=== PATIENT | female | born 1985 | race African-American/Black ===

== ENCOUNTER 2016-05-12 20:05 | Emergency (ER) | payer BC, MEDICAID ==
--- NOTE | 2016-05-12 20:17 | ER Document Report ---
ED Medical Screen (RME) - General Stated Complaint: HEADACHE,BODY ACHES Notes: Patient is a 30-year-old female presents emergency department symptom onset Monday. Cough, fever, chills, body aches Did not receive a flu vaccine. I have greeted and performed a rapid initial assessment of this patient. A comprehensive ED assessment and evaluation of the patient, analysis of test results and completion of the medical decision making process will be conducted by additional ED providers. TRAVEL OUTSIDE OF THE U.S. IN LAST 30 DAYS: No - Related Data Allergies/Adverse Reactions: No Known Allergies Allergy (Verified 05/12/16 20:14) Past Medical History - Past Medical History Cardiac Medical History: Reports: Hx Hypertension Denies: Hx Coronary Artery Disease, Hx Heart Attack, Hx Hypercholesterolemia , Hx Heart Murmur Pulmonary Medical History: Denies: Hx Asthma, Hx Bronchitis, Hx COPD, Hx Pneumonia Neurological Medical History: Denies: Hx Cerebrovascular Accident, Hx Seizures Renal/ Medical History: Denies: Hx Ovarian Cysts, Hx Pelvic Inflammatory Disease Malignancy Medical History: Denies: Hx Breast Cancer, Hx Cervical Cancer, Hx Ovarian Cancer GI Medical History: Denies: Hx Gastroesophageal Reflux Disease, Hx Hiatal Hernia , Hx Ulcer Musculoskeltal Medical History: Denies Hx Arthritis Infectious Medical History: Denies: Hx HIV Past Surgical History: Reports: Hx Cholecystectomy, Hx Tubal Ligation - Immunizations Hx Diphtheria, Pertussis, Tetanus Vaccination: Yes
[2016-05-12] MEDS ORDERED: HYDROCODONE/ACETAMINOPHEN 5-325 MG TABLET PO ONE (21:57)
[2016-05-12] MEDS ORDERED: KETOROLAC TROMETHAMINE 60 MG/2 ML SDV IM ONE (21:57)
--- NOTE | 2016-05-12 22:05 | ER Document Report ---
ED Flu Like - General Chief Complaint: Flu Symptoms Stated Complaint: HEADACHE,BODY ACHES Time seen by provider: 21:50 Mode of Arrival: Ambulatory Information source: Patient TRAVEL OUTSIDE OF THE U.S. IN LAST 30 DAYS: No - HPI Onset: Yesterday Quality of pain: Achy Severity: Moderate Associated symptoms: Body/muscle aches, Chills, Nonproductive cough, Fever, Headache, Sore throat, Sweating Notes: Patient states that she has been having body aches, hot and cold chills, cough, sore throat since yesterday. She states that she has had some nausea and vomited one time yesterday. She denies any abdominal pain. She denies any difficulty breathing. She complains of some mild intermittent headaches. No blurred vision. No numbness tingling or weakness. No rash. She denies any other complaints. - Related Data Allergies/Adverse Reactions: No Known Allergies Allergy (Verified 05/12/16 20:14) Past Medical History - Social History Smoking Status: Unknown if Ever Smoked Family History: Reviewed & Not Pertinent Patient has suicidal ideation: No Patient has homicidal ideation: No - Past Medical History Cardiac Medical History: Reports: Hx Hypertension Denies: Hx Coronary Artery Disease, Hx Heart Attack, Hx Hypercholesterolemia , Hx Heart Murmur Pulmonary Medical History: Denies: Hx Asthma, Hx Bronchitis, Hx COPD, Hx Pneumonia Neurological Medical History: Denies: Hx Cerebrovascular Accident, Hx Seizures Renal/ Medical History: Denies: Hx Ovarian Cysts, Hx Peritoneal Dialysis, Hx Pelvic Inflammatory Disease Malignancy Medical History: Denies: Hx Breast Cancer, Hx Cervical Cancer, Hx Ovarian Cancer GI Medical History: Denies: Hx Gastroesophageal Reflux Disease, Hx Hiatal Hernia , Hx Ulcer Musculoskeltal Medical History: Denies Hx Arthritis Infectious Medical History: Denies: Hx HIV Past Surgical History: Reports: Hx Cholecystectomy, Hx Tubal Ligation - Immunizations Hx Diphtheria, Pertussis, Tetanus Vaccination: Yes Review of Systems - Review of Systems -: Yes All other systems reviewed and negative Physical Exam - Vital signs Vitals: Temp Pulse Resp BP Pulse Ox 98.2 F 85 16 146/102 H 96 05/12/16 20:14 05/12/16 20:14 05/12/16 20:14 05/12/16 20:14 05/12/16 20:14 Interpretation: Normal - General General appearance: Appears well, Alert - HEENT Head: Normocephalic, Atraumatic Eyes: Normal Conjunctiva: Normal Pupils: PERRL Ears: Normal External canal: Normal Tympanic membrane: Normal Nasal: Clear rhinorrhea Mouth/Lips: Normal Pharynx: Normal. No: Erythema, Exudate, Peritonsillar abscess, Uvular edema Neck: Normal. No: Anterior cervical chain, Meningismus - Respiratory Respiratory status: No respiratory distress Chest status: Nontender Breath sounds: Normal. No: Rhonchi, Stridor, Wheezing Chest palpation: Normal - Cardiovascular Rhythm: Regular Heart sounds: Normal auscultation Murmur: No - Extremities General upper extremity: Normal inspection, Nontender, Normal color, Normal ROM , Normal temperature General lower extremity: Normal inspection, Nontender, Normal color, Normal ROM , Normal temperature, Normal weight bearing. No: Gerard's sign - Neurological Neuro grossly intact: Yes Cognition: Normal Orientation: AAOx4 Martinez Coma Scale Eye Opening: Spontaneous Martinez Coma Scale Verbal: Oriented Martinez Coma Scale Motor: Obeys Commands [place] Coma Scale Total: 15 Speech: Normal Motor strength normal: LUE, RUE, LLE, RLE Sensory: Normal - Psychological Associated symptoms: Normal affect, Normal mood - Skin Skin Temperature: Warm Skin Moisture: Dry Skin Color: Normal Course - Re-evaluation Re-evalutation: 05/12/16 22:04 Patient is nontoxic. Stable vitals. The patient said have a positive influenza B. Since her symptoms started yesterday, I offered a prescription of Tamiflu. The patient is not a high risk patient. She does not have insurance, I explained the cost of the medication and she declined it at this time. I will discharge her home with symptomatic treatment with NSAIDs and [place]. Follow-up if not better in 3-5 days, sooner if getting worse. The patient is noted to have elevated blood pressure during today's emergency department visit. The patient was informed of this finding. The patient was instructed that this may be related to pre-hypertension and requires further evaluation with a primary care provider. The patient has no hypertensive symptoms at this time. - Vital Signs Vital signs: Temp Pulse Resp BP Pulse Ox 98.2 F 85 16 146/102 H 96 05/12/16 20:14 05/12/16 20:14 05/12/16 20:14 05/12/16 20:14 05/12/16 20:14 Discharge - Discharge Clinical Impression: Influenza Condition: Stable Disposition: HOME, SELF-CARE Instructions: Influenza ([facility]) [id number] Additional Instructions: Take medications as prescribed. Drink plenty of fluids. Follow-up if not better in 3-5 days, sooner if getting worse. Your blood pressure was elevated during today's visit. Have this rechecked with your doctor. Prescriptions: Hydrocodone Bit/Homatropine [Hycodan Syrup 5-1.5 mg/5 ml Ud Cup] 5 ml PO Q4HP PRN #120 ml PRN Reason: Naproxen Sodium 550 mg PO BID PRN #20 tablet PRN Reason: Forms: Elevated Blood Pressure, Parent Work Note
[2016-05-12 22:21] VITALS: BP 142/96
== END 2016-05-12 22:20 | disposition home or self-care (01) ==
LOC: ER 20:05
DX: J11.1 Influenza due to unidentified influenza virus with other respiratory manifestations (principal); R51 Headache; R52 Pain, unspecified; R05 Cough; J02.9 Acute pharyngitis, unspecified
CPT/HCPCS: 99283; 96372; 87804; J1885

== ENCOUNTER 2017-06-07 16:16 | Emergency (ER) | payer SELFPAY ==
[2017-06-07 16:32] VITALS: BP 136/95
--- NOTE | 2017-06-07 17:34 | ER Document Report ---
HPI - HPI Patient complains to provider of: Lump to right lower jaw Onset: Other - 1 month Onset/Duration: Persistent Quality of pain: Achy Pain Level: 1 Context: Patient complains of tender lump to her right lower for the past month. Patient additionally complains of dental pain. Patient denies any fever. Associated Symptoms: Other - Dental pain. denies: Fever Exacerbated by: Denies Relieved by: Denies Similar symptoms previously: No Recently seen / treated by doctor: No - ROS ROS below otherwise negative: Yes Systems Reviewed and Negative: Yes All other systems reviewed and negative - CONSTITUTIONAL Constitutional: DENIES: Fever - EENT Notes: Dental pain - GASTROINTESTINAL Gastrointestinal: DENIES: Nausea, Patient vomiting - REPRODUCTIVE Reproductive: DENIES: : - DERM Skin Color: Normal Skin Problems: None Past Medical History - General Information source: Patient - Social History Smoking Status: Current Every Day Smoker Chew tobacco use (# tins/day): No Smoking Education Provided: Yes Frequency of alcohol use: Occasional Drug Abuse: None Occupation: Dishwashing Family History: Reviewed & Not Pertinent Patient has suicidal ideation: No Patient has homicidal ideation: No - Medical History Medical History: Negative - Past Medical History Cardiac Medical History: Denies: Hx Coronary Artery Disease, Hx Heart Attack, Hx Hypercholesterolemia , Hx Heart Murmur Pulmonary Medical History: Denies: Hx Asthma, Hx Bronchitis, Hx COPD, Hx Pneumonia Neurological Medical History: Denies: Hx Cerebrovascular Accident, Hx Seizures Renal/ Medical History: Denies: Hx Ovarian Cysts, Hx Peritoneal Dialysis, Hx Pelvic Inflammatory Disease Malignancy Medical History: Denies: Hx Breast Cancer, Hx Cervical Cancer, Hx Ovarian Cancer GI Medical History: Denies: Hx Gastroesophageal Reflux Disease, Hx Hiatal Hernia , Hx Pancreatitis, Hx Ulcer Musculoskeltal Medical History: Denies Hx Arthritis Infectious Medical History: Denies: Hx HIV Past Surgical History: Reports: Hx Cholecystectomy, Hx Tubal Ligation - Immunizations Hx Diphtheria, Pertussis, Tetanus Vaccination: Yes Vertical Provider Document - CONSTITUTIONAL Agree With Documented VS: Yes Exam Limitations: No Limitations General Appearance: WD/WN, No Apparent Distress - INFECTION CONTROL TRAVEL OUTSIDE OF THE [place].S. IN LAST 30 DAYS: No - HEENT HEENT: Atraumatic, Normocephalic Mouth Diagram: 1 - dental decay, gingival tenderness, inflammation Notes: Patient with well circumscribed mobile 1 cm nodular lesion to right lower jaw, area is mobile concerning for cystic type lesion, no overlying erythema, no concern for abscess at this time - NECK Neck: Normal Inspection, Supple. negative: Lymphadenopathy-Left, Lymphadenopathy-Right - RESPIRATORY Respiratory: Breath Sounds Normal, No Respiratory Distress O2 Sat by Pulse Oximetry: 100 - CARDIOVASCULAR Cardiovascular: Regular Rate, Regular Rhythm - BACK Back: Normal Inspection - MUSCULOSKELETAL/EXTREMETIES Musculoskeletal/Extremeties: MAEW - NEURO Level of Consciousness: Awake, Alert, Appropriate Motor/Sensory: No Motor Deficit - DERM Integumentary: Warm, Dry, No Rash. negative: Abscess Course - Re-evaluation Re-evalutation: 06/07/17 17:33 Controlled substance database reviewed - Vital Signs Vital signs: Temp Pulse Resp BP Pulse Ox 99.3 F 68 18 136/95 H 100 06/07/17 16:32 06/07/17 16:32 06/07/17 16:32 06/07/17 16:32 06/07/17 16:32 Discharge - Discharge Clinical Impression: Pain due to dental caries, Cyst of face Condition: Stable Disposition: HOME, SELF-CARE Instructions: Anti-Inflammatory Medication ([facility]), Clindamycin ([facility]), Dental Infection or Abscess ([facility]) Additional Instructions: Return immediately for any new or worsening symptoms Followup with your primary care provider, call tomorrow to make a followup appointment Follow-up with a dental care provider Follow-up with a surgeon to remove cystic lesion Prescriptions: Clindamycin HCl [Cleocin 300 mg Capsule] 300 mg PO TID #21 capsule Naproxen [Naprosyn 250 Nmg Tablet] 1 tab PO BID #14 tablet Forms: Smoking Cessation Education, Return to Work Referrals: [facility] [Provider Group] - Follow up as needed [facility] [Provider Group] - Follow up as needed [facility] [[facility] - Follow up as needed
== END 2017-06-07 17:43 | disposition home or self-care (01) ==
LOC: ER 16:16
DX: K02.9 Dental caries, unspecified (principal); M27.49 Other cysts of jaw; F17.200 Nicotine dependence, unspecified, uncomplicated; Z90.49 Acquired absence of other specified parts of digestive tract; Z98.51 Tubal ligation status
CPT/HCPCS: 99283

== ENCOUNTER 2017-07-03 11:44 | Emergency (ER) | payer SELFPAY ==
[2017-07-03 11:53] VITALS: BP 134/97
[2017-07-03] MEDS ORDERED: PENICILLIN V POTASSIUM 500 MG TABLET PO ONE (13:35)
[2017-07-03] MEDS ORDERED: LIDOCAINE 2% VISCOUS SOLN 20 ML UDCUP PO ONE (13:35)
--- NOTE | 2017-07-03 13:37 | ER Document Report ---
ED Skin Rash/Insect Bite/Abscs - General Chief Complaint: Skin Problem Stated Complaint: SIDE PAIN Time Seen by Provider: 07/03/17 13:20 Mode of Arrival: Ambulatory Information source: Patient Notes: 31-year-old female presents to ED for a pea-sized cyst of the right lower jaw has been there about 2 months or more. She states is becoming more painful and is causing pain at the side of face. She also has 2 decayed teeth in the lower jaw right behind where the cyst is. She states they have been there about 5 years but they have become more painful in the last couple weeks. She states the pain in the cyst and the teeth has been worse for the last 2-3 days. She states she has an appointment with [facility] and made to have the cyst removed but the pain is getting worse. TRAVEL OUTSIDE OF THE [place]S. IN LAST 30 DAYS: No - HPI Patient complains to provider of: Tender/swollen area, Other - Dental pain Onset: Other - The cyst is been present for about 2 months the broken teeth and painful teeth have been for about 5 years Onset/Duration: Gradual Quality of pain: Sharp, Throbbing Severity: Severe Pain Level: 5 Skin Character: Other - Cystlike structure under the skin no redness or inflammation noted Quality of rash: Painful Identify cause: No Exacerbated by: Other - Touching or moving her jaw she also has 2 decayed teeth Relieved by: Denies Similar symptoms previously: Yes Recently seen / treated by doctor: No - Related Data Allergies/Adverse Reactions: No Known Allergies Allergy (Verified 07/03/17 11:47) Past Medical History - General Information source: Patient - Social History Smoking Status: Current Every Day Smoker Cigarette use (# per day): Yes Chew tobacco use (# tins/day): No Smoking Education Provided: Yes - 4 min Frequency of alcohol use: Occasional Drug Abuse: None Family History: Reviewed & Not Pertinent Patient has suicidal ideation: No Patient has homicidal ideation: No - Past Medical History Cardiac Medical History: Reports: Hx Hypertension Pulmonary Medical History: Reports: None Neurological Medical History: Reports: None Endocrine Medical History: Reports: None Renal/ Medical History: Reports: None Malignancy Medical History: Reports: None GI Medical History: Reports: None Musculoskeltal Medical History: Reports None Skin Medical History: Reports None Psychiatric Medical History: Reports: None Traumatic Medical History: Reports: None Infectious Medical History: Reports: None Past Surgical History: Reports: Hx Cholecystectomy, Hx Tubal Ligation - Immunizations Immunizations up to date: Yes Hx Diphtheria, Pertussis, Tetanus Vaccination: Yes Review of Systems - Review of Systems Constitutional: No symptoms reported EENT: Mouth pain, Dental problem Cardiovascular: No symptoms reported Respiratory: No symptoms reported Gastrointestinal: No symptoms reported Genitourinary: No symptoms reported Female Genitourinary: No symptoms reported Musculoskeletal: No symptoms reported Skin: No symptoms reported Hematologic/Lymphatic: No symptoms reported Neurological/Psychological: No symptoms reported Physical Exam - Vital signs Vitals: Temp Pulse Resp BP Pulse Ox 98.9 F 79 16 134/97 H 100 07/03/17 11:52 07/03/17 11:52 07/03/17 11:52 07/03/17 11:52 07/03/17 11:52 Interpretation: Normal - General General appearance: Appears well, Alert - HEENT Head: Normocephalic, Atraumatic Eyes: Normal Pupils: PERRL Ears: Normal External canal: Normal Tympanic membrane: Normal Sinus: Normal Nasal: Normal Mouth/Lips: Caries Mucous membranes: Normal, Other - There is a pea-sized cyst along the lower right jaw line that she states is also very painful it is in the buccal mucosa Teeth diagram: 1 - Very decayed teeth most of #32 is broken and down to the gumline 31 has a very large hole in it 2 - Pea size cyst in the skin - Respiratory Respiratory status: No respiratory distress Chest status: Nontender Breath sounds: Normal Chest palpation: Normal - Cardiovascular Rhythm: Regular Heart sounds: Normal auscultation Murmur: No - Abdominal Inspection: Normal Distension: No distension Bowel sounds: Normal Tenderness: Nontender Organomegaly: No organomegaly - Back Back: Normal, Nontender - Extremities General upper extremity: Normal inspection, Nontender, Normal color, Normal ROM , Normal temperature General lower extremity: Normal inspection, Nontender, Normal color, Normal ROM , Normal temperature, Normal weight bearing. No: Gerard's sign - Neurological Neuro grossly intact: Yes Cognition: Normal Orientation: AAOx4 Martinez Coma Scale Eye Opening: Spontaneous [place] Coma Scale Verbal: Oriented [place] Coma Scale Motor: Obeys Commands Martinez Coma Scale Total: 15 Speech: Normal Motor strength normal: LUE, RUE, LLE, RLE Sensory: Normal - Psychological Associated symptoms: Normal affect, Normal mood - Skin Skin Temperature: Warm Skin Moisture: Dry Skin Color: Normal Course - Re-evaluation Re-evalutation: 07/03/17 21:16 Patient was treated with Penicillin VK and viscous lidocaine for her dental pain to tooth #31 and 32. She also had a small cyst to her superficial skin in front of these 2 teeth on the lower jaw. This was not an abscess there was no redness there was no inflammation there was no signs or symptoms of infection. Patient states she does have a appointment for May for the have this removed by the surgical clinic. I did have Dr. Rivas come and look at the area and he agreed that it was not an abscess. He was discharged home with prescription for Penicillin VK and instructed to please follow-up with the dentist to have the tooth treated as they need to be. - Vital Signs Vital signs: Temp Pulse Resp BP Pulse Ox 98.9 F 79 16 134/97 H 100 07/03/17 11:52 07/03/17 11:52 07/03/17 11:52 07/03/17 11:52 07/03/17 11:52 Discharge - Discharge Clinical Impression: Pain due to dental caries Condition: Stable Disposition: HOME, SELF-CARE Additional Instructions: TOOTHACHE: Your pain is due to dental decay. The tooth must be repaired in order for you to feel better. You will, therefore, be referred to a dentist. We do not have dentists on the staff at [facility]. Severe swelling or drainage around a tooth usually means a dental abscess. This also requires evaluation and treatment by the dentist, but antibiotics may be prescribed while awaiting dental treatment. You should be rechecked immediately if you develop major swelling of the face, increasing pain, a lump in the jaw or gums, headache, difficulty swallowing, or fever. PENICILLIN V K: You have been given a prescription for Penicillin VK. Your physician has determined that this is the best antibiotic for your condition. Pen VK can be taken with meals, however more of the antibiotic gets into the bloodstream if it's taken on an empty stomach. Penicillin usually has no side effects. However, allergy to penicillins is common. If you have had an allergic reaction to any drug of the penicillin family, you should never take any other penicillin. Notify your doctor at once if you develop hives, itching, swelling, faintness, or shortness of breath. You can use the viscous lidocaine to the tooth every 1-2 hours. Put a small amount on your finger and place it around the tooth. Or you can use it by putting some of the viscous lidocaine on a Q-tip and then rub it around the tooth. Do not squirt the syringe into your mouth as this will contaminated. Be careful eating and drinking after using it because it can numb your tongue. FOLLOW-UP CARE: You have been referred for follow-up care to the dentists listed below. Call the dentists office for an appointment as you were instructed or within the next two days. If you experience worsening or a significant change in your symptoms, notify the physician immediately or return to the Emergency Department at any time for re-evaluation. [facility] [address] [place], [place] [facility] [address] [place] [address] [facility] [address] [facility] [address] [facility] ([facility]) [facility] [facility] [address] [email or web address] [address] [place] [address] Monday- 8:00am to 5:00 pm Will see patients from other [facility]. Charges based on income and family size and accepts Medicare, Medicaid, and Insurances Will pull molars [facility] [id number] Hours of Operation 8:00 am - 4:30 pm weekdays The following dental offices accept Medicaid: [facility] Dr. Meek Dr. Rodriguez Dr. Case Dr. Dueñas Mason [place], [place], and Ashwini oral surgery Dr. Luther ([place]) Dr. De La Paz ([place]) [facility] Drs. Tripp ([place]) Dr. Sosa ([place]) [facility] Dr. Richey ([place]) Drs. Romero and ([place]) Medicaid Care Line Prescriptions: Ibuprofen 600 mg PO Q8HP PRN #20 tablet PRN Reason: Penicillin V Potassium [Penicillin Vk 500 mg Tablet] 500 mg PO BID #20 tablet Forms: Elevated Blood Pressure, Smoking Cessation Education, Return to Work
== END 2017-07-03 14:20 | disposition home or self-care (01) ==
LOC: ER 11:44
DX: K02.9 Dental caries, unspecified (principal); K08.89 Other specified disorders of teeth and supporting structures; L72.8 Other follicular cysts of the skin and subcutaneous tissue; I10 Essential (primary) hypertension; F17.210 Nicotine dependence, cigarettes, uncomplicated; Z71.6 Tobacco abuse counseling
CPT/HCPCS: 99406; 99283; J3490

== ENCOUNTER 2017-07-08 12:09 | Emergency (ER) | payer SELFPAY ==
--- NOTE | 2017-07-08 12:48 | ER Document Report ---
HPI - HPI Patient complains to provider of: itching left eyelid Onset: This morning Quality of pain: No pain Pain Level: Denies Context: 31 yo female c/o left lower medial eyelid itching this morning which called swelling so could not go to work. Non contact lense wearer. Associated Symptoms: None Exacerbated by: Denies Relieved by: Denies - ROS ROS below otherwise negative: Yes Systems Reviewed and Negative: Yes All other systems reviewed and negative - REPRODUCTIVE Reproductive: DENIES: : Past Medical History - General Information source: Patient - Social History Smoking Status: Unknown if Ever Smoked Frequency of alcohol use: None Drug Abuse: None Lives with: Family Family History: Reviewed & Not Pertinent - Past Medical History Cardiac Medical History: Reports: Hx Hypertension Renal/ Medical History: Denies: Hx Peritoneal Dialysis Past Surgical History: Reports: Hx Cholecystectomy, Hx Tubal Ligation - Immunizations Immunizations up to date: Yes Hx Diphtheria, Pertussis, Tetanus Vaccination: Yes Vertical Provider Document - CONSTITUTIONAL Agree With Documented VS: Yes Exam Limitations: No Limitations General Appearance: No Apparent Distress - INFECTION CONTROL TRAVEL OUTSIDE OF THE [place]. IN LAST 30 DAYS: No - HEENT HEENT: Normal ENT Exam Notes: no lid swelling, cornea clear. no sty. - NECK Neck: Supple - RESPIRATORY Respiratory: Breath Sounds Normal, No Respiratory Distress - CARDIOVASCULAR Cardiovascular: Regular Rate, Regular Rhythm - MUSCULOSKELETAL/EXTREMETIES Musculoskeletal/Extremeties: MAEW - NEURO Level of Consciousness: Awake, Alert - DERM Integumentary: Warm, Dry, No Rash Course - Vital Signs Vital signs: Temp Pulse Resp BP Pulse Ox 99.1 F 59 L 12 141/91 H 100 07/08/17 12:19 07/08/17 12:19 07/08/17 12:19 07/08/17 12:19 07/08/17 12:19 Discharge - Discharge Clinical Impression: eyelid itching Condition: Good Disposition: HOME, SELF-CARE Instructions: Conjunctivitis, Allergic, Eyedrop Use ([facility]) Additional Instructions: don't rub eye cool compress see eye doctor if persists or gets worse Prescriptions: Olopatadine HCl [Pataday] 1 drp OS DAILY #1 bot Forms: Return to Work Referrals: FREEDOM BISHOP MD [ACTIVE STAFF] - Follow up as needed
[2017-07-08 13:38] VITALS: BP 139/94
== END 2017-07-08 13:38 | disposition home or self-care (01) ==
LOC: ER 12:09
DX: H57.8 Other specified disorders of eye and adnexa (principal); H02.845 Edema of left lower eyelid; I10 Essential (primary) hypertension
CPT/HCPCS: 99283

== ENCOUNTER 2018-05-18 08:07 | Emergency (ER) | payer SELFPAY ==
--- NOTE | 2018-05-18 09:35 | RADIOLOGY REPORT (SQ) ---
EXAM DESCRIPTION: FOOT LEFT 2 VIEWS COMPLETED DATE/TIME: 05/18/2018 9:25 am REASON FOR STUDY: Possible foreign body COMPARISON: None. NUMBER OF VIEWS: Two views. TECHNIQUE: AP and lateral radiographic images acquired of the left foot. LIMITATIONS: None. FINDINGS: MINERALIZATION: Normal. BONES: No acute fracture or dislocation. No worrisome bone lesions. JOINTS: No effusions. SOFT TISSUES: No evidence of radiopaque foreign body. No significant soft tissue swelling. OTHER: No other significant finding. IMPRESSION: No evidence of radiopaque foreign body. No acute bony abnormality. TECHNICAL DOCUMENTATION: JOB ID: [id number] [employer]- All Rights Reserved Reading location - IP/workstation name: [email or web address]
[2018-05-18 10:34] VITALS: BP 179/110
--- NOTE | 2018-05-18 10:38 | ER Document Report ---
ED General - General Chief Complaint: Foot Pain Stated Complaint: LEFT FOOT INJURY Time Seen by Provider: 05/18/18 08:59 TRAVEL OUTSIDE OF THE [place] IN LAST 30 DAYS: No - HPI Patient complains to provider of: Left foot pain Notes: Patient coming in for evaluation of left foot patient states approximately November of the last concern is now she has a hard area on her foot is painful the last may be retained into the foot upon initial evaluation patient is requesting removal and then requesting an x-ray. Patient denies any other concerns denies any fever chills nausea vomiting diarrhea patient states she was told it last days in her foot that her leg may become infected and fall off - Related Data Allergies/Adverse Reactions: No Known Allergies Allergy (Verified 07/03/17 11:47) Past Medical History - Social History Smoking Status: Current Every Day Smoker Chew tobacco use (# tins/day): No Frequency of alcohol use: Social Drug Abuse: None Family History: Reviewed & Not Pertinent Patient has suicidal ideation: No Patient has homicidal ideation: No - Past Medical History Cardiac Medical History: Reports: Hx Hypertension Denies: Hx Heart Attack, Hx Hypercholesterolemia Pulmonary Medical History: Denies: Hx Asthma, Hx Bronchitis, Hx COPD, Hx Pneumonia Neurological Medical History: Denies: Hx Seizures Renal/ Medical History: Denies: Hx Peritoneal Dialysis GI Medical History: Denies: Hx Gastroesophageal Reflux Disease, Hx Hiatal Hernia, Hx Ulcer Musculoskeletal Medical History: Denies Hx Arthritis Past Surgical History: Reports: Hx Cholecystectomy, Hx Tubal Ligation - Immunizations Immunizations up to date: Yes Hx Diphtheria, Pertussis, Tetanus Vaccination: Yes Review of Systems - Review of Systems Constitutional: No symptoms reported EENT: No symptoms reported Cardiovascular: No symptoms reported Respiratory: No symptoms reported Gastrointestinal: No symptoms reported Genitourinary: No symptoms reported Female Genitourinary: No symptoms reported Musculoskeletal: No symptoms reported Skin: No symptoms reported Hematologic/Lymphatic: No symptoms reported Neurological/Psychological: Other - Foot pain Physical Exam - Vital signs Vitals: Temp Pulse Resp BP Pulse Ox 98.1 F 75 16 179/107 H 100 05/18/18 08:25 05/18/18 08:25 05/18/18 08:25 05/18/18 08:25 05/18/18 08:25 Interpretation: Normal - General General appearance: Appears well, Alert - HEENT Head: Normocephalic, Atraumatic Eyes: Normal Pupils: PERRL - Respiratory Respiratory status: No respiratory distress Chest status: Nontender Breath sounds: Normal Chest palpation: Normal - Cardiovascular Rhythm: Regular Heart sounds: Normal auscultation Murmur: No - Abdominal Inspection: Normal Distension: No distension Bowel sounds: Normal Tenderness: Nontender Organomegaly: No organomegaly - Back Back: Normal, Nontender - Extremities General upper extremity: Normal inspection, Nontender, Normal color, Normal ROM, Normal temperature General lower extremity: Nontender, Normal color, Normal ROM, Normal temperature, Normal weight bearing. No: Normal inspection - On the plantar section underneath the, Gerard's sign - Neurological Neuro grossly intact: Yes Cognition: Normal Orientation: AAOx4 Martinez Coma Scale Eye Opening: Spontaneous [place] Coma Scale Verbal: Oriented [place] Coma Scale Motor: Obeys Commands [place] Coma Scale Total: 15 Speech: Normal Motor strength normal: LUE, RUE, LLE, RLE Sensory: Normal - Psychological Associated symptoms: Normal affect, Normal mood - Skin Skin Temperature: Warm Skin Moisture: Dry Skin Color: Normal Course - Re-evaluation Re-evalutation: 05/20/18 07:05 Per patient request x-ray was performed showing no signs of foreign body examination does not reveal any signs of foreign body more or less of bunion or callus formation recommend bunion pads and careful watching and monitoring signs of infection were explained to the patient. - Vital Signs Vital signs: Temp Pulse Resp BP Pulse Ox 97.7 F 52 L 16 179/110 H 100 05/18/18 10:33 05/18/18 10:33 05/18/18 10:33 05/18/18 10:33 05/18/18 10:33 Discharge - Discharge Clinical Impression: Foot pain Qualifiers: Laterality: left Qualified Code(s): M79.672 - Pain in left foot Condition: Good Disposition: HOME, SELF-CARE Additional Instructions: Your physical exam is not show any signs of infection your x-rays not show any signs of a foreign body would recommend following up with your primary care physician he may place lotion on the area to help with pain also recommend bunion pads. Return to the ER if any symptoms worsen Forms: Return to Work
== END 2018-05-18 10:34 | disposition home or self-care (01) ==
LOC: ER 08:07
DX: M79.672 Pain in left foot (principal); F17.200 Nicotine dependence, unspecified, uncomplicated; I10 Essential (primary) hypertension
CPT/HCPCS: 99283

== ENCOUNTER 2018-07-10 09:48 | Emergency (ER) | payer SELFPAY ==
[2018-07-10 10:00] VITALS: BP 161/102
[2018-07-10] MEDS ORDERED: PENICILLIN V POTASSIUM 500 MG TABLET PO ONE (10:16)
[2018-07-10] MEDS ORDERED: ACETAMINOPHEN 325 MG TABLET PO ONE (10:16)
[2018-07-10] MEDS ORDERED: LIDOCAINE 2% VISCOUS SOLN 20 ML UDCUP PO ONE (10:17)
--- NOTE | 2018-07-10 10:25 | ER Document Report ---
ED Oral Problem - General Chief Complaint: Toothache Stated Complaint: TOOTHACHE Time Seen by Provider: 07/10/18 09:58 Mode of Arrival: Ambulatory Information source: Patient Notes: 32-year-old female presented to ED for complaint of dental pain to tooth #32 for the last 2 days. She states she has a whole mouth full of cavities and needs to go to the dentist but she does not have insurance and has been eaten Tylenol Motrin ibuprofen Aleve and BC for the pain. Patient states she just recently got family dental and insurance and she plans to get an appointment as soon as possible for her toothache and her high blood pressure. She states she is not had high blood pressure medicine since 2012 when she quit having insurance. TRAVEL OUTSIDE OF THE [place] IN LAST 30 DAYS: No - HPI Patient complains to provider of: Jaw pain, Toothache Onset: Other - Long-term chronic worse for the last 2 days Quality of pain: Pressure, Sharp Severity: Moderate Pain Level: 4 Associated symptoms: Dental decay, Toothache Worsened by: Cold Relieved by: Nothing Similar symptoms previously: Yes Recently seen / treated by doctor/dentist: No - Related Data Allergies/Adverse Reactions: No Known Allergies Allergy (Verified 07/10/18 09:50) Past Medical History - General Information source: Patient - Social History Smoking Status: Current Every Day Smoker Cigarette use (# per day): Yes - 1 black and mild a day Chew tobacco use (# tins/day): No Smoking Education Provided: Yes - 4 minutes Frequency of alcohol use: Occasional Drug Abuse: None Lives with: Family - Sister Family History: Reviewed & Not Pertinent Patient has suicidal ideation: No Patient has homicidal ideation: No - Past Medical History Cardiac Medical History: Reports: Hx Hypertension Pulmonary Medical History: Reports: None EENT Medical History: Reports: None Neurological Medical History: Reports: None Endocrine Medical History: Reports: None Renal/ Medical History: Reports: None Malignancy Medical History: Reports: None GI Medical History: Reports: None Musculoskeletal Medical History: Reports None Skin Medical History: Reports None Psychiatric Medical History: Reports: None Traumatic Medical History: Reports: None Infectious Medical History: Reports: None Past Surgical History: Reports: Hx Cholecystectomy, Hx Tubal Ligation - Immunizations Immunizations up to date: Yes Hx Diphtheria, Pertussis, Tetanus Vaccination: Yes Review of Systems - Review of Systems Constitutional: No symptoms reported EENT: Mouth pain, Dental problem Cardiovascular: No symptoms reported Respiratory: No symptoms reported Gastrointestinal: No symptoms reported Genitourinary: No symptoms reported Female Genitourinary: No symptoms reported Musculoskeletal: No symptoms reported Skin: No symptoms reported Hematologic/Lymphatic: No symptoms reported Neurological/Psychological: No symptoms reported Physical Exam - Vital signs Vitals: Temp Pulse Resp BP Pulse Ox 97.9 F 82 16 161/102 H 100 07/10/18 09:59 07/10/18 09:59 07/10/18 09:59 07/10/18 09:59 07/10/18 09:59 Interpretation: Hypertensive - General General appearance: Appears well, Alert - HEENT Head: Normocephalic, Atraumatic Eyes: Normal Pupils: PERRL Ears: Normal External canal: Normal Tympanic membrane: Normal Sinus: Normal Nasal: Normal Mouth/Lips: Caries Teeth diagram: 1 - Severe pain with most of the tooth missing. Most of her teeth have large cavities. Pharynx: Normal Neck: Normal - Respiratory Respiratory status: No respiratory distress Chest status: Nontender Breath sounds: Normal Chest palpation: Normal - Cardiovascular Rhythm: Regular Heart sounds: Normal auscultation Murmur: No - Abdominal Inspection: Normal Distension: No distension Bowel sounds: Normal Tenderness: Nontender Organomegaly: No organomegaly - Back Back: Normal, Nontender - Extremities General upper extremity: Normal inspection, Nontender, Normal color, Normal ROM, Normal temperature General lower extremity: Normal inspection, Nontender, Normal color, Normal ROM, Normal temperature, Normal weight bearing. No: Gerard's sign - Neurological Neuro grossly intact: Yes Cognition: Normal Orientation: AAOx4 Martinez Coma Scale Eye Opening: Spontaneous [place] Coma Scale Verbal: Oriented [place] Coma Scale Motor: Obeys Commands Martinez Coma Scale Total: 15 Speech: Normal Motor strength normal: LUE, RUE, LLE, RLE Sensory: Normal - Psychological Associated symptoms: Normal affect, Normal mood - Skin Skin Temperature: Warm Skin Moisture: Dry Skin Color: Normal Course - Re-evaluation Re-evalutation: 07/10/18 10:34 Presentation is most consistent with likely an infected tooth. Airway is patent. Vitals within normal limits. Patient is able swallow without any difficulty. There is no significant facial swelling. No evidence of Triston angina, apical abscess, or airway obstruction. Patient will be started on antib iotics. I've instructed to follow-up with dentistry as earliest ability for definitive management. At this time will discharge with return precautions and follow-up recommendations. Verbal discharge instructions given a the bedside and opportunity for questions given. Medication warnings reviewed. Patient is in agreement with this plan and has verbalized understanding of return precautions and the need for primary care follow-up in the next 24-72 hours. - Vital Signs Vital signs: Temp Pulse Resp BP Pulse Ox 97.9 F 82 16 161/102 H 100 07/10/18 09:59 07/10/18 09:59 07/10/18 09:59 07/10/18 09:59 07/10/18 09:59 Discharge - Discharge Clinical Impression: Pain due to dental caries Condition: Stable Disposition: HOME, SELF-CARE Instructions: Family Physicians / Practices Additional Instructions: TOOTHACHE: Your pain is due to dental decay. The tooth must be repaired in order for you to feel better. You will, therefore, be referred to a dentist. We do not have dentists on the staff at [facility]. Severe swelling or drainage around a tooth usually means a dental abscess. This also requires evaluation and treatment by the dentist, but antibiotics may be prescribed while awaiting dental treatment. You should be rechecked immediately if you develop major swelling of the face, increasing pain, a lump in the jaw or gums, headache, difficulty swallowing, or fever. PENICILLIN V K: You have been given a prescription for Penicillin VK. Your physician has determined that this is the best antibiotic for your condition. Pen VK can be taken with meals, however more of the antibiotic gets into the bloodstream if it's taken on an empty stomach. Penicillin usually has no side effects. However, allergy to penicillins is common. If you have had an allergic reaction to any drug of the penicillin family, you should never take any other penicillin. Notify your doctor at once if you develop hives, itching, swelling, faintness, or shortness of breath. I have given you a syringe of viscous lidocaine to apply to your gums. Please apply a small amount to your finger rub it on the gums and then put to get back on the syringe do this no more than every 4 hours. FOLLOW-UP CARE: You have been referred for follow-up care to the dentists listed below. Call the dentists office for an appointment as you were instructed or within the next two days. If you experience worsening or a significant change in your symptoms, notify the physician immediately or return to the Emergency Department at any time for re-evaluation. [facility] [address] [place], [place] [facility] [address] [place] [address] [facility] [address] [facility] [address] [facility] [address] [facility] [email or web address] [facility] [address] [place] [address] Monday- 8:00am to 5:00 pm Will see patients from other [facility]. Charges based on income and family size and accepts Medicare, Medicaid, and Insurances Will pull molars COUNT INCLUDES THE [facility] Student Clinics [facility] [id number] Hours of Operation 8:00 am - 4:30 pm weekdays The following dental offices accept Medicaid: [facility] Dr. Meek Dr. Rodriguez Dr. Case Dr. Dueñas Mason Rowley Lutsavage, and [facility] Dr. Luther ([place]) Dr. De La Paz ([place]) [facility] Drs. Walters and Weston ([place]) Dr. Sosa ([place]) [facility] Dr. Richey ([place]) Drs. Romero and ([place]) Medicaid Care Line Prescriptions: Penicillin V Potassium [Penicillin Vk 500 mg Tablet] 500 mg PO BID #20 tablet Forms: Elevated Blood Pressure, Smoking Cessation Education, Return to Work
== END 2018-07-10 10:30 | disposition home or self-care (01) ==
LOC: ER 09:48
DX: K02.9 Dental caries, unspecified (principal); R68.84 Jaw pain; F17.290 Nicotine dependence, other tobacco product, uncomplicated; Z98.51 Tubal ligation status; Z90.49 Acquired absence of other specified parts of digestive tract
CPT/HCPCS: 99406; 99282; J3490